=== PATIENT | male | born 1930 | race Two or more races ===

== ENCOUNTER 2019-10-21 09:55 | Inpatient (IN) | payer OTHER ==
[~2019-10-21] VITALS: Ht 162.6 cm; Wt 74.8 kg
[2019-10-21] MEDS ORDERED: AVAPRO75 MG (10:13)
[2019-10-21] MEDS ORDERED: CARVEDILOL25 M1 (10:14)
[2019-10-21] MEDS ORDERED: PLAVIX75 MG (10:14)
[2019-10-21] MEDS ORDERED: NORVASC5 MG (10:15)
[2019-10-21] MEDS ORDERED: ZOCOR20 MG (10:15)
[2019-10-21] MEDS ORDERED: AMLODIPINE BESY10 MG PO (15:47)
[2019-10-21] MEDS ORDERED: CICLOPIROX6.6 ML (15:48)
[2019-10-21] MEDS ORDERED: IRBESARTAN300 MG PO (15:48)
[2019-10-21] MEDS ORDERED: SIMVASTATIN40 MG PO (15:49)
[2019-10-23] MEDS ORDERED: DUI500 PO (16:25)
[2019-10-23] MEDS ORDERED: ELIQUIS2.5 MG PO (16:25)
[2019-10-23] MEDS ORDERED: ULTRACET PO (16:25)
== END 2019-10-23 18:32 | DRG 482 ==
LOC: ER 09:55 → O/R 12:21 → SEC-K 12:21 → SURH 12:21 → O/R 15:02 → SURH 19:03
PROVIDERS: ADMIT Orthopaedic Surgery; ATTEND Orthopaedic Surgery
PROC: 0QS636Z Reposition Right Upper Femur with Intramedullary Internal Fixation Device, Percutaneous Approach (ICD-10-PCS; principal; 2019-10-21 14:00)
DX: S72.141A Displaced intertrochanteric fracture of right femur, initial encounter for closed fracture (principal); M81.0 Age-related osteoporosis without current pathological fracture; I25.10 Atherosclerotic heart disease of native coronary artery without angina pectoris; F03.90 Unspecified dementia, unspecified severity, without behavioral disturbance, psychotic disturbance, mood disturbance, and anxiety; Z95.1 Presence of aortocoronary bypass graft; W18.30XA Fall on same level, unspecified, initial encounter

== ENCOUNTER 2019-10-25 09:40 | Inpatient (IN) | payer OTHER ==
[~2019-10-25] VITALS: Ht 152.4 cm; Wt 77.1 kg
[~2019-10-25 09:40] MED LIST: AMLODIPINE BESY10 MG PO; AVAPRO75 MG; CARVEDILOL25 M1; CICLOPIROX6.6 ML; DUI500 PO; ELIQUIS2.5 MG PO; IRBESARTAN300 MG PO; NORVASC5 MG; PLAVIX75 MG; SIMVASTATIN40 MG PO; ULTRACET PO; ZOCOR20 MG
--- NOTE | 2019-10-25 09:50 | NUR ---
SE RECIBE PTE EL CUAL LLEGA CON PERSONAL DE PARAMEDICOS EL CUAL TRAEN PTE ALERTA EN PERSONA, ACTIVO, SE OBSERVA PTE ASISTIDO POR NON REBREATING CON MARCE CANULA AT 10LTS. NO SE OBSERVA PTE USANDO MUSCULOS ACCESORIOS AL MOMENTO. SE OBSERVA CANALIZACION EN BRAZO DERECHO CON ANGIO #22. SE OBSERVA CICATRIZ EN CADERA DERECHA DE CIRUGIA PREVIA (REMPLAZO DE CADERA DERECHA). SE PROCEDE A CONECTAR PTE A MONITOR CARDIACO Y OXIMETRIA DE PULSO. SE HACE TANYA DE VENOPUNCION A PTE LAS CUALES SE ENCUENTRAN PATENTE, SE COLOCA ESCOBAR CATHETER A PTE EL CUAL SE ENCUENTRA DRENANDO ORINA A GRAVEDAD. DR. GRIMM Y DR. KRAMER EVALUAN A PTE LA CUAL SE MANTIENE BAJO OBSERVACION RECIBIENDO TRATAMIENTO MEDICO.
--- NOTE | 2019-10-25 13:31 | NUR ---
PTE ALERTA Y ORIENTADO EN PERSONA SE ORIENTA SOBRE TX MEDICO, SE ADMINISTRAN MEDS A PTE CRISTIANE ORDEN MEDICA. SE COLOCA DRIP DE TRIDIL 50MG/250ML BAJANDO A 3ML/HR. SE TRASLADA A PTE A ESTUDIO DE CT DONDE SE REALIZA XT DE KELVIN Y PECHO, PTE CON ORDEN DE ECHO PENDIENTE A REALIZAR, SE NOTIFICA EL MISMO. PTE SE RESTRINGUE X2 EN EXTREMIDADES SUPPERIORES PARA EVITAR PARAR TX MEDICO. SE REALIZA ESTIMADO INICIAL, SE COLOCA DOCUMENTACION DE ORDEN EN RECORD DE PTE. PTE CONSULTADO CON MEDICINA INTERNA. PTE SE CONTINUA MONITORIANDO POR CAMBIOS.
--- NOTE | 2019-10-25 14:19 | NUR ---
SE REALIZA PRUEBA DE COVID PCR A PTE, SE RETIPE 2DA ELLIOT DE ENZIMAS CARDIACAS. PTE CON ORDEN DE ISOLATION AIRBORNE. PTE SE CONTINUA MONITORIANDO POR CAMBIOS.
--- NOTE | 2019-10-25 15:25 | NUR ---
SE RECIBE PTE EN AREA DE CRITICO EN CUBICULO #3 PTE ALERTA EN PERSONA, UBICADO EN CAMA CON BARANDAS ELEVADA Y TIMBREA ACCESIBLE, CONECTADO A MONITOR CARDIACO Y OXYMETRIA DE PULSO, PTE RESPIRANDO CON NON REBREATHER 100%, RESTINGIDO POR 2 EN EXTREMIDADES SUPERIORES, SE OBSERVA VENOPUNCION PATENTE Y MIGUELANGEL DE EDEMA, ESCOBAR DRENADO ORINA DE COLOR AMARILLO INTENSO, PTE EN ESPERA DE ESTUDIO DE ECHO EL CUAL ESTA NOTIFICADO PTE SE MANTIENE EN OBSERVACION Y BAJO TRATAMIENTO.
== END 2019-11-08 09:35 | disposition expired | DRG 177 ==
LOC: ER 09:40 → ICU 18:30
PROVIDERS: ADMIT Internal Medicine; ATTEND Internal Medicine
PROC: 4A033R1 Measurement of Arterial Saturation, Peripheral, Percutaneous Approach (ICD-10-PCS; principal; 2019-10-25)
PROC: 3E0F7SF Introduction of Other Gas into Respiratory Tract, Via Natural or Artificial Opening (ICD-10-PCS; 2019-10-25)
PROC: B246ZZZ Ultrasonography of Right and Left Heart (ICD-10-PCS; 2019-10-25)
PROC: BB24ZZZ Computerized Tomography (CT Scan) of Bilateral Lungs (ICD-10-PCS; 2019-10-25)
PROC: BW28ZZZ Computerized Tomography (CT Scan) of Head (ICD-10-PCS; 2019-10-25)
PROC: 05HY33Z Insertion of Infusion Device into Upper Vein, Percutaneous Approach (ICD-10-PCS; 2019-10-27)
PROC: 02H633Z Insertion of Infusion Device into Right Atrium, Percutaneous Approach (ICD-10-PCS; 2019-10-27)
PROC: 0DH67UZ Insertion of Feeding Device into Stomach, Via Natural or Artificial Opening (ICD-10-PCS; 2019-11-07)
PROC: 3E0G76Z Introduction of Nutritional Substance into Upper GI, Via Natural or Artificial Opening (ICD-10-PCS; 2019-11-07)
DX: J69.8 Pneumonitis due to inhalation of other solids and liquids (principal); I26.99 Other pulmonary embolism without acute cor pulmonale; J96.91 Respiratory failure, unspecified with hypoxia; I24.9 Acute ischemic heart disease, unspecified; K92.2 Gastrointestinal hemorrhage, unspecified; I25.810 Atherosclerosis of coronary artery bypass graft(s) without angina pectoris; J95.89 Other postprocedural complications and disorders of respiratory system, not elsewhere classified; I97.191 Other postprocedural cardiac functional disturbances following other surgery; I50.20 Unspecified systolic (congestive) heart failure; I11.0 Hypertensive heart disease with heart failure; I48.91 Unspecified atrial fibrillation; I25.10 Atherosclerotic heart disease of native coronary artery without angina pectoris; I46.2 Cardiac arrest due to underlying cardiac condition; F03.90 Unspecified dementia, unspecified severity, without behavioral disturbance, psychotic disturbance, mood disturbance, and anxiety; M81.0 Age-related osteoporosis without current pathological fracture; I50.9 Heart failure, unspecified; Z20.828 Contact with and (suspected) exposure to other viral communicable diseases; Z99.89 Dependence on other enabling machines and devices; Z98.890 Other specified postprocedural states; Z95.1 Presence of aortocoronary bypass graft